=== PATIENT | male | born 1990 | race Caucasian/White ===

== ENCOUNTER 2022-05-30 21:27 | Emergency (ER) | payer SELFPAY ==
[~2022-05-30] VITALS: Ht 180.3 cm; Wt 73.6 kg
[2022-05-30 21:35] VITALS: BP 111/82
== END 2022-05-30 23:25 | disposition home or self-care (01) ==
LOC: ER 21:27
DX: M25.512 Pain in left shoulder (principal); G89.29 Other chronic pain; V00.131A Fall from skateboard, initial encounter; Y93.89 Activity, other specified; Y92.89 Other specified places as the place of occurrence of the external cause; Y99.8 Other external cause status
CPT/HCPCS: 73030; 99283